=== PATIENT | female | born 1955 | race African-American/Black ===

== ENCOUNTER 2019-09-26 11:04 | Emergency (ER) | payer OTHER, MEDICAID, MEDICARE ==
[~2019-09-26] VITALS: Ht 162.6 cm; Wt 76.4 kg
[~2019-09-26 11:04] MED LIST: ASPI81 PO; ATOR20TA86 PO; GLIM4TAB5 PO; LISI20TA PO; METF-960 PO; PANT40TA25 PO
[2019-09-26 11:06] VITALS: BP 139/60
[2019-09-26 11:25] LABS: GLUCOSE,POINT OF CARE 155 MG/DL (70-110)
[2019-09-26] MEDS ORDERED: IBUPROFEN 800 MG TABLET PO ONE (12:30)
== END 2019-09-26 13:01 | disposition home or self-care (01) ==
LOC: EMS 11:15
DX: M79.10 Myalgia, unspecified site (principal); E11.9 Type 2 diabetes mellitus without complications; I10 Essential (primary) hypertension; F17.210 Nicotine dependence, cigarettes, uncomplicated; Z79.899 Other long term (current) drug therapy; Z86.73 Personal history of transient ischemic attack (TIA), and cerebral infarction without residual deficits; Z98.890 Other specified postprocedural states; V49.9XXA Car occupant (driver) (passenger) injured in unspecified traffic accident, initial encounter; Y93.89 Activity, other specified; Y92.488 Other paved roadways as the place of occurrence of the external cause; Y99.8 Other external cause status